=== PATIENT | female | born 1990 | race Caucasian/White ===

== ENCOUNTER 2017-07-08 07:53 | Emergency (ER) | payer BC, OTHER ==
[2017-07-08] MEDS ORDERED: Ketorolac Tromethamine 30 MG/ML VIAL ONE (08:54)
== END 2017-07-08 09:46 | disposition home or self-care (01) ==
LOC: ERS 07:53
DX: B34.9 Viral infection, unspecified (principal); E28.2 Polycystic ovarian syndrome; F41.9 Anxiety disorder, unspecified; F32.9 Major depressive disorder, single episode, unspecified; F43.10 Post-traumatic stress disorder, unspecified
CPT/HCPCS: 87081; 87430; 96372; J1885

== ENCOUNTER 2019-04-28 20:53 | Inpatient (IN) | payer BC ==
[2019-04-28] MEDS ORDERED: Morphine 4 MG/ML VIAL ONE (21:59)
[2019-04-28 22:12] LABS: #Basophils 0.1 thou/uL (0.0-0.2); #Eosinphils 0.1 thou/uL (0.0-0.7); #Lymphocytes 2.3 thou/uL (1.20-3.40); #Monocytes 0.8 thou/uL (0.11-0.59); #Neutrophils 9.3 thou/uL (1.40-6.50); %Basophils 0.4 % (0.0-1.0); %Eosinophils 0.7 % (0.0-10.0); %Lymphocytes 18.5 % (21.0-51.0); %Monocytes 6.4 % (0.0-10.0); Hemoglobin 13.8 g/dL (12.0-16.0); Mean Corpuscular HGB CONC 34.5 g/dL (32.0-36.0); Mean Corpuscular Hemoglobin 30.2 pg (27.0-31.0); Mean Corpuscular Volume 87.6 fL (78.0-98.0); Mean Platelet Volume 6.2 fL (7.4-10.4); Platelet Count 301 thou/uL (130-400); Red Blood Cell (RBC) Count 4.58 mill/uL (4.20-5.40); White Blood Cell (WBC) Count 12.6 thou/uL (4.8-10.8)
--- NOTE | 2019-04-28 22:12 | RAD ---
Radiograph left leg tibia-fibula 2 views: DATE: 04/28/2019 Time: 9:10 PM. HISTORY: 29-year-old female status post acute traumatic injury, fall from horse. FINDINGS: Oblique fracture of distal fibular diaphysis with mild lateral and mild anterior angulation of fractu re apex, approximately quarter to half bone width lateral displacement of main distal fragment, plus posterior butterfly fracture fragment. Transversely oriented fracture at upper portion of medial malleolus, with significant medial displace ment of distal fragment, which adheres to the medial surface of the talus. The talus is severely subluxed or dislocated laterally relative to the tibial plafond and. Posterior malleolus is intact. M id and proximal tibia and fibula are intact. IMPRESSION: 1. Fracture-dislocation/subluxation at the ankle . 2. Displaced, mildly comminuted fracture of distal fibular shaft.
[2019-04-28] MEDS ORDERED: Lidocaine 1% (PF) 30 ML VIAL ONE (22:15)
--- NOTE | 2019-04-28 22:18 | RAD ---
Radiograph left ankle 3 views: DATE: 04/28/2019 Time: 9:17 PM HISTORY: 29-year-old female status post acute ankle trauma due to fall from horse FINDINGS: Oblique fracture of distal fibular diaphysis with mild lateral and mild anterior angulation of fractu re apex, approximately quarter to half bone width lateral displacement of main distal fragment, plus posterior butterfly fracture fragment. Transversely oriented fracture at upper portion of medial malleolus, with significant medial displace ment of distal fragment, which adheres to the medial surface of the talus. The talus is severely subluxed laterally relative to the tibial plafond, and there is widening of the anterior and medial a spects of the ankle mortise. Posterior malleolus is intact. IMPRESSION: 1. Traumatic subluxation-dislocation of tibiotalar joint associated with significant displaced fractu re of the medial malleolus. 2. Displaced, mildly comminuted fracture of distal fibular shaft.
[2019-04-28] MEDS ORDERED: Ketorolac Tromethamine 30 MG/ML VIAL ONE (22:31)
[2019-04-28] MEDS ORDERED: Fentanyl 100 MCG/2 ML VIAL ONE (22:31)
[2019-04-28 22:43] LABS: ALT (SGPT) 23 U/L (8-55); AST (SGOT) 15 U/L (5-34); Albumin 4.2 g/dL (3.5-5.0); Alkaline Phosphatase 95 U/L (40-110); Anion Gap 11 mmol/L (10-20); BUN (Urea Nitrogen) 23 mg/dL (7.0-18.7); Bilirubin, Total 0.5 mg/dL (0.2-1.2); Calc. Creatinine Clearance 0 mL/min (70-130); Calcium 9.4 mg/dL (7.8-10.44); Carbon Dioxide 27 mmol/L (22-29); Chloride 105 mmol/L (98-107); Estimated GFR-MDRD 75; Globulin 3.2 g/dL (2.4-3.5); Glucose 111 mg/dL (70-105); Potassium 3.7 mmol/L (3.5-5.1); Protein, Total 7.4 g/dL (6.0-8.3); Sodium 139 mmol/L (136-145)
--- NOTE | 2019-04-28 23:31 | RAD ---
RADIOGRAPH CHEST 1 VIEW: DATE: 04/28/2019 HISTORY: 29-year-old female for preoperative clearance FINDINGS: There are no airspace densities, pulmonary edema, pneumothorax, or cardiomegaly. The lateral costophr enic angles are sharp. IMPRESSION: No acute cardiopulmonary findings.
--- NOTE | 2019-04-28 23:33 | HP ---
REQUESTING PHYSICIAN: Dr. Estrada. ATTENDING SURGEON: Dr. Kaye. CONSULTATIONS: Orthopedics, Dr. Espinoza. HISTORY OF PRESENT ILLNESS: The patient is a 29-year-old woman, who was riding a horse when she was thrown from the horse, landing on her left ankle. She denies hitting her head or any other injuries. She was brought to the emergency department by ground EMS with a complaint of left ankle pain and swelling and deformity. Upon evaluation in the emergency department, it was noted that she has left ankle fracture dislocation and we were asked to evaluate the patient for admission and obtain Orthopedic consultation. The ER physician had discussed case with Dr. Espinoza, who recommend closed reduction and admission for likely ORIF tomorrow. ALLERGIES: CLINDAMYCIN. CURRENT MEDICATIONS: None. PAST MEDICAL HISTORY: Polycystic ovary syndrome, anxiety, depression, PTSD. PAST SURGICAL HISTORY: Bilateral carpal tunnel release. SOCIAL HISTORY: The patient drinks occasionally. She uses marijuana. Denies tobacco use. She lives independently at home with family. REVIEW OF SYSTEMS: 10-point review of systems is negative except as otherwise stated. PHYSICAL EXAMINATION: VITAL SIGNS: Blood pressure 135/86, heart rate 110, respirations 18, oxygen saturation is 100% on room air, temperature is 98.8. GENERAL: The patient is resting comfortably in bed. She is awake, alert, and oriented x3. Enders Coma Scale is 15. The patient does state her pain is starting to increase as the medicine which was given previously is wearing off, but otherwise she is doing well. HEENT. Head is normocephalic and atraumatic. Eyes; extraocular motion intact. PERRLA bilaterally. Ears are atraumatic without discharge. Nose is atraumatic without discharge. Oropharynx is clear. NECK: Nontender. Trachea is midline. No JVD. CHEST: Clear to auscultation with good inspiratory and expiratory effort. HEART: Regular rate and rhythm. ABDOMEN: Soft, flat, nontender with active bowel sounds. PELVIS: Stable. EXTREMITIES: Neurovascularly intact x4. Left lower extremity has a short pre-hospital splint in place. All extremities are neurovascularly intact. The patient's left lower extremity has 2+ dorsalis pedis pulse and capillary refill is less than 3 seconds. Back is atraumatic. LABORATORY FINDINGS: White blood cell count 12.6, hemoglobin 13.8, hematocrit 40.2, platelets 301. Sodium 139, potassium 3.7, chloride 105 CO2 of 27, BUN 23, creatinine 0.88, glucose 111. LFTs are unremarkable. RADIOGRAPHIC FINDINGS: Views of the left tibia and fibula show a fracture dislocation/subluxation of the ankle, a displaced, mildly comminuted fracture of the distal fibular shaft. Views of the left ankle again show a traumatic subluxation/ dislocation of the tibiotalar joint associated with significantly displaced fracture fragment of the medial malleolus. There was also noted to be a displaced mildly comminuted fracture of the distal fibular shaft. ASSESSMENT: 1. Status post thrown from horse. 2. Left ankle fracture dislocation, awaiting closed reduction in the ER. 3. Acute pain secondary to above. 4. History of anxiety, depression, posttraumatic stress disorder, polycystic ovary disease. PLAN: Plan will be to admit the patient to the surgical floor. She will be made n.p.o. after midnight. She will have pain control, pulmonary toilet, gastritis and mechanical VTE prophylaxis. The evaluation, examination, laboratory, and radiographic findings were discussed with Dr. Kaye prior to this dictation. Job ID: [id number]
[2019-04-29] MEDS ORDERED: Promethazine HCl 25 MG/ML VIAL IM PRN ×2 (01:33)
[2019-04-29] MEDS ORDERED: Ondansetron ODT 4 MG TAB PO PRN (01:33)
[2019-04-29] MEDS ORDERED: Dextrose 50% Abboject 50 ML SYRINGE SLOW IVP PRN (01:33)
[2019-04-29] MEDS ORDERED: hydrALAZINE 20 MG/ML VIAL SLOW IVP PRN (01:33)
[2019-04-29] MEDS ORDERED: Ondansetron PF 4 MG/2 ML Vial IVP PRN (01:33)
[2019-04-29] MEDS ORDERED: Dextrose 5% in Water 1,000 ML IV PRN (01:33)
[2019-04-29 01:42] VITALS: BMI 48.6
[2019-04-29] MEDS: Sodium Chloride 0.9% 1,000 ML IV SCH ×3 (02:02→16:05)
[2019-04-29] MEDS: Ketorolac Tromethamine 30 MG/ML VIAL IVP SCH ×4 (02:02→20:21)
[2019-04-29] MEDS: Acetaminophen 1,000 MG in Premix Bag 1 BAG IVPB SCH ×2 (02:03→08:03)
[2019-04-29] MEDS ORDERED: CEFAZOLIN 2 GM in Premix Bag 1 BAG IVPB SCH (07:30)
--- NOTE | 2019-04-29 07:42 | CON ---
DATE OF CONSULTATION: 04/29/2019 REQUESTING PHYSICIAN: Melecio Kaye MD BRIEF HISTORY OF PRESENT ILLNESS: The patient is a 29-year-old lady, who on the evening of April 28, 2019, was thrown from her horse, landing awkwardly on the left ankle. She reports immediate left ankle pain and inability to ambulate. There was no loss of consciousness. Upon arrival at [facility], x-rays of the left tib-fib and left ankle were obtained and these are remarkable for a fracture dislocation of the left ankle with a distal medial malleolar fracture. A Pascal C distal fibula fracture and disruption of the syndesmosis and lateral dislocation of the talus from underneath the mortise. A closed reduction was performed in the emergency room with worship of the talus under the plafond and she was splinted and Orthopedic consultation requested. PAST MEDICAL HISTORY: Remarkable for PTSD as well as history of polycystic ovary. PAST SURGICAL HISTORY: Bilateral carpal tunnel release without complications. MEDICATIONS: None. ALLERGIES: TO CLINDAMYCIN THAT CAUSES RASH. SOCIAL HISTORY: The patient consumes alcohol on a social basis. She does use edible marijuana products. She denies tobacco consumption. REVIEW OF SYSTEMS: Denies recent fevers, chills, or sweats. Denies chest pain or shortness of breath. Denies numbness or tingling in this left lower extremity. PHYSICAL EXAMINATION: GENERAL: Today, the patient is examined in her hospital bed. She is awake, alert, and oriented. VITAL SIGNS: She is found to have a temperature of 97.9, heart rate of 73, respiratory rate of 18, and blood pressure of 112/80. HEENT: Atraumatic and normocephalic. HEART: Shows a regular rate and rhythm without murmur. LUNGS: Clear to auscultation bilaterally with good breath sounds. Chest wall is nontender. ABDOMEN: Round with normal bowel sounds. PELVIS: Stable to compression and nonpainful. EXTREMITIES: Remarkable for bilateral upper extremities. They are atraumatic at the shoulder, elbow, wrist, and hand. She denies numbness or tingling in the hands. The right lower extremity is also atraumatic with no pain. She is wiggling her toes normally and has normal subjective sensation. The left lower extremity is remarkable for a short-leg splint that is in place. She is able to wiggle her toes and does not have a significant increase in pain with passive stretch of the toes. She does have intact sensation over the dorsal and plantar surfaces of the toes with excellent capillary refill. The knee and hip appear atraumatic. LABORATORY DATA: She has a white count of 12.6, a hematocrit of 40.2, and platelets 301,000. X-RAYS: Two-view tib-fib and three-view ankle remarkable for a medial malleolus fracture with a fracture occurring towards the tip of the malleolus. A distal fibula fracture that is above the level of the ankle mortise and a lateral displacement of the talus that has been partially corrected with closed reduction and splinting. ASSESSMENT: A 29-year-old female status post thrown from horse, sustaining left ankle fracture dislocation. PLAN: At this time, I have discussed with the patient and given the displacement and instability of the ankle, I would recommend proceeding with open reduction and internal fixation as well as stabilization of the mortise with a syndesmotic screw. Today, we discussed risks and benefits. Risks include, but are not limited to, bleeding, infection, nerve injury, DVT, PE, malunion, nonunion, ankle stiffness, residual ankle pain, loss of limb or life. The patient appears to understand and does wish to proceed. Consent will be obtained prior to surgery. Job ID: [id number]
--- NOTE | 2019-04-29 07:57 | RAD ---
LEFT TIBIA FIBULA: Total of 4 views. AP and lateral projections. COMPARISON: Comparison is made with film taken earlier on 04/28/2019. FINDINGS/IMPRESSION: Cast material is noted in place. The obliquely oriented fracture of the distal diaphysis of the fibu la is again noted. There continues to be mild displacement of at least shaft width. POS: [facility]
[2019-04-29] MEDS: Famotidine/PF 20 mg/2ml Vial SLOW IVP SCH ×2 (08:03→20:28)
[2019-04-29] MEDS ORDERED: FLU VACC QS2019-20(6MOS UP)/PF 60 MCG/0.5 ML SYRINGE IM ONE (09:00)
[2019-04-29] MEDS ORDERED: Lidocaine 1% PF 5 ML VIAL ONE (09:55)
[2019-04-29] MEDS ORDERED: Succinylcholine Chloride 20 MG/ML 10 ml SYRINGE FS ONE (09:55)
[2019-04-29] MEDS ORDERED: Rocuronium Bromide 10 MG/ML (10ML VIAL) ONE (09:55)
[2019-04-29] MEDS ORDERED: Ketorolac Tromethamine 30 MG/ML VIAL ONE (09:55)
[2019-04-29] MEDS ORDERED: PROPOFOL 200 MG/20 ML VIAL ONE (09:55)
--- NOTE | 2019-04-29 10:10 | RAD ---
EXAM: 3 views of the left shoulder HISTORY: Shoulder pain after falling from a horse COMPARISON: None FINDINGS: There is no evidence of acute fracture or dislocation. No degenerative changes are present. No soft tissue swelling is seen. The visualized thorax is unremarkable. IMPRESSION: No evidence of acute osseous abnormality.
[2019-04-29] MEDS: Morphine 2 MG/ML SYRINGE SLOW IVP PRN ×2 (11:48→16:10)
--- NOTE | 2019-04-29 12:55 | PRG ---
DATE OF SERVICE: 04/29/2019 SUBJECTIVE: The patient is currently on the surgical floor. She had x-rays performed that showed a fracture dislocation of the left ankle with a distal medial malleolar fracture, a Pascal C distal fibula fracture and disruption of the syndesmosis and lateral dislocation of the talus from underneath the mortise. A closed reduction was performed in the ED with spiritism of the talus under the plafond, and she was splinted. Today around 2:00 p.m., she will undergo open reduction and internal fixation as well as stabilization of the mortise with a syndesmotic screw with Ortho. She is currently n.p.o. She says her pain is well controlled with her current pain regimen. She says she slept well overnight. OBJECTIVE: VITAL SIGNS: She was hypertensive once overnight, but her vital signs have since been stable. GENERAL: The patient is resting comfortably in bed, in no acute distress. HEENT: Atraumatic, normocephalic. RESPIRATORY: The patient is breathing unlabored and she has equal chest rise and fall. EXTREMITIES: Neurovascularly intact x4 with clean, dry, and intact dressing of her left ankle. ASSESSMENT: 1. Status post thrown from a horse. 2. Left ankle fracture dislocation with closed reduction in the ED. 3. Acute pain, improved. 4. History of anxiety, depression, and post traumatic stress disorder as well as polycystic ovary syndrome. The patient does not take any prescribed medications for this. PLAN: To continue supportive care. Await surgery this afternoon at 2:00 p.m. We will restart diet after that. She will work with PT this morning on using her crutches and if everything goes well with surgery today, likely be discharged tomorrow. This patient was discussed with Dr. Dominguez. Job ID: [id number] [email or web address]
[2019-04-29] MEDS ORDERED: Bupivacaine PF 0.5% 30 ML VIAL ONE (13:15)
[2019-04-29] MEDS ORDERED: Ibuprofen 600 MG TAB PO PRN (13:28)
[2019-04-29] MEDS ORDERED: traMADol HCl 50 MG TAB PO PRN (13:28)
[2019-04-29] MEDS ORDERED: Fentanyl 100 MCG/2 ML VIAL ONE ×3 (13:34→15:20)
[2019-04-29] MEDS: Acetaminophen 500 MG TAB PO SCH ×2 (14:01→20:20)
--- NOTE | 2019-04-29 15:55 | RAD ---
LEFT ANKLE THREE VIEW: 04/29/19 INDICATION: ORIF left ankle. FINDINGS: There is fracture fixation of the distal fibula with plate and screw fixation as well as two metallic screws of the medial malleolus. There is overlying soft tissue lucency and prominence of the left an kle. IMPRESSION: Intraoperative views for fracture fixation of the distal left leg. POS: [facility]
[2019-04-29] MEDS: traMADol HCl 50 MG TAB PO PRN (18:33)
[2019-04-29] MEDS: Senokot S 8.6-50 MG TAB PO SCH (20:27)
[2019-04-29] MEDS: Gabapentin 300 MG CAP PO PRN (20:27)
[2019-04-29] MEDS: CEFAZOLIN 2 GM in Premix Bag 1 BAG IVPB SCH (21:11)
[2019-04-29] MEDS: Cyclobenzaprine 10 MG TAB PO PRN (22:06)
--- NOTE | 2019-04-29 22:57 | PRG ---
DATE OF SERVICE: 04/29/2019 SUBJECTIVE: The patient is hospital day 2, postop day 0 from being thrown from a horse and sustaining left ankle fracture dislocation. She underwent closed reduction in the emergency department last night and today underwent open reduction and internal fixation of her fracture dislocation. She tolerated this well. She has begun working with Physical Therapy as she is nonweightbearing for the next several weeks. The patient reports that her pain is controlled and she is tolerating a diet. PHYSICAL EXAMINATION: VITAL SIGNS: Stable. The patient is afebrile. GENERAL: The patient is resting comfortably in bed. She is awake, alert, and oriented x3. Gaytari Coma Scale is 15. She appears in no distress. EXTREMITIES: Her extremities are neurovascularly intact. Her postop dressing is clean, dry, and intact. ASSESSMENT: 1. Status post fall from horse. 2. Status post open reduction and internal fixation of left ankle fracture dislocation. PLAN: Plan will be to continue supportive care. Encourage physical and occupational therapy, and the patient will likely be able to be discharged home within the next 24 to 48 hours. The patient is eager to be discharged home and return to work on Friday. Job ID: [id number]
[2019-04-30] MEDS: traMADol HCl 50 MG TAB PO PRN ×3 (00:37→13:39)
[2019-04-30] MEDS: Acetaminophen 500 MG TAB PO SCH ×3 (02:39→13:39)
[2019-04-30] MEDS: CEFAZOLIN 2 GM in Premix Bag 1 BAG IVPB SCH (05:03)
--- NOTE | 2019-04-30 07:37 | HP ---
ADDENDUM: This is an addendum for H and P dictated by Guero Chester PA-C For full details, please see history and physical report details of which I have confirmed with him. HISTORY OF PRESENT ILLNESS: The patient was seen this morning on trauma rounds. In short, she is a 29-year-old fell off her horse, landing on her left ankle. She wrenched her left shoulder a little bit as well as she was holding onto the reins. No loss of consciousness or other injury. She was noted to have a fracture dislocation in the left ankle and planned to undergo surgery for this today. Since being splinted in the emergency room better, she does not have pain anywhere else except for her left shoulder is sore. ALLERGIES: REPORTS AN ALLERGY TO CLINDAMYCIN. MEDICATIONS: Does not take any medications. PAST MEDICAL HISTORY: Polycystic ovary disease, PTSD, and depression, but no problems. PAST SURGICAL HISTORY: She has undergone carpal tunnel release surgery. SOCIAL HISTORY: She does not smoke. She occasionally has alcohol, but not to excess. REVIEW OF SYSTEMS: Ten-point review of systems completed and negative except as mentioned above. PHYSICAL EXAMINATION: VITAL SIGNS: The patient has been afebrile since admission. Heart rate 81, respirations 14, 98% saturated on room air, blood pressure 123/77. GENERAL: Reveals an obese young woman she is not flushed or toxic. HEENT: Nontraumatic. NECK: Supple and nontender. HEART: Regular in its rate and rhythm without murmurs, rubs, or gallops. LUNGS: Clear to auscultation bilaterally. ABDOMEN: Soft, nontender, nondistended. PELVIS: Stable. EXTREMITIES: Warm and well perfused. She does have a left splint in place, but has normal sensation and movement of her toes and normal capillary refill. Her right foot has normal pulses and sensation. No other deformities or areas of tenderness are noted. NEUROLOGIC: Intact. She is able to move her shoulder with full active range of motion, but with pain. LABORATORY DATA: Lab work on admission was . Left tibia-fibula and ankle x-ray show a fracture dislocation/subluxation of the left ankle with a mildly comminuted fracture of the distal fibular shaft. Shoulder x-rays were ordered on rounds this morning on left shoulder radiographically. ASSESSMENT: Fracture dislocation of the left ankle, going to the operating room today for open reduction and internal fixation. We will get her up postoperatively with physical therapy. If her pain is managed and she is able to mobilize with crutches, she will likely discharge her home either later today or tomorrow. Job ID: [id number]
[2019-04-30] MEDS: Senokot S 8.6-50 MG TAB PO SCH (08:46)
[2019-04-30] MEDS ORDERED: Polyethylene Glycol 3350 17 GM Packet PO SCH (09:00)
[2019-04-30] MEDS ORDERED: Famotidine 20 MG TAB PO SCH (09:00)
[2019-04-30] MEDS: Gabapentin 300 MG CAP PO PRN (10:23)
[2019-04-30] MEDS: Cyclobenzaprine 10 MG TAB PO PRN (10:23)
[2019-04-30 11:14] VITALS: BP 146/88; TEMP 98.5
--- NOTE | 2019-04-30 12:25 | OP ---
DATE OF PROCEDURE: 04/29/2019 PREOPERATIVE DIAGNOSIS: Left ankle fracture dislocation with bimalleolar ankle fracture and syndesmotic disruption. POSTOPERATIVE DIAGNOSIS: Left ankle fracture dislocation with bimalleolar ankle fracture and syndesmotic disruption. SURGICAL PROCEDURE: Open reduction and internal fixation of left bimalleolar ankle fracture with syndesmotic screw placement. ANESTHESIA: General. CONTRACT PROGRAMMER: Senthil. TOURNIQUET TIME: 49 minutes at 300 mmHg. IMPLANTS: Synthes system was used with an 8 hole 1/3 tubular plate and 3.5 mm cortical screws with the addition of a 4-mm cortical syndesmotic screw and two 4.0 mm partially-threaded cancellous screws for the medial malleolus. COMPLICATIONS: None. DRAINS: None. SPECIMEN: None. OUTCOME: Near-anatomic alignment. INDICATIONS FOR PROCEDURE: The patient is a 29-year-old lady status post fall from horse, sustaining a fracture dislocation of the left ankle. After discussion with the patient including risks and benefits, we decided to proceed with open reduction and internal fixation to restore more normal anatomy to the ankle to facilitate healing and return of function. Informed consent has been obtained, risks and benefits have been discussed. Risks include, but are not limited to bleeding, infection, nerve injury, ankle stiffness, hardware failure, malunion, nonunion, DVT, PE, loss of limb or life. The patient appears to understand and does wish to proceed. DESCRIPTION OF PROCEDURE: The patient was brought to the operating room and a time-out performed followed by induction of general anesthesia. Next, the patient was positioned supine on the OR table and a sterile prep and drape was performed in the left lower extremity. The limb was then exsanguinated with Esmarch bandage, tourniquet inflated to 300 mmHg. A lateral skin incision was made, centered over the distal fibular shaft fracture. After the skin was sharply incised, dissection was carried down bluntly to the fracture. The periosteum was freed off the ends of the bones and the bones were reduced and held in place with a bone tenaculum. Next, an [id number] interfragmentary lag screw was applied in standard fashion securing the fracture fragment. Next, an 8-hole neutralization plate was applied to the lateral cortex of the distal fibula. This was held in place with 3 cortical screws proximal and 3 cortical screws distal to the main fracture line. Next, attention was placed to the medial side of the ankle. A curvilinear incision was made, centered over the tip of the medial malleolus. After skin was sharply incised, dissection was carried down bluntly taking care to protect the saphenous vein. The fracture was identified, freed of its hematoma and then the fracture was reduced and held in place with a bone tenaculum, while two 40 mm long 4.0 partially-threaded cancellous screws were passed from the tip of the medial malleolus obliquely across the fracture into the distal tibial metaphysis. AP and lateral C-arm images were then obtained that showed anatomic alignment of the ankle, but still with a loose mortise. As such, a 4.0 mm fully-threaded cortical screw was passed through the distal hole of the plate across both cortices of the fibula and both cortices of the distal tibia securing and stabilizing the ankle mortise. At the completion of this, final AP, lateral and mortise images were obtained and saved. The wounds were then irrigated with bulb syringe and closed in layers with 0 Vicryl deep followed by 2-0 Vicryl and then nylon for the skin. Xeroform gauze, Webril, and fiberglass splint was applied to the ankle. Tourniquet was let down and the patient was transferred to recovery room in stable condition. There were no complications. She tolerated the procedure well. Job ID: [id number]
--- NOTE | 2019-05-01 12:11 | EKG ---
Test Reason : Blood Pressure : / mmHG Vent. Rate : 105 BPM Atrial Rate : 105 BPM P-R Int : 140 ms QRS Dur : 072 ms QT Int : 324 ms P-R-T Axes : 064 061 026 degrees QTc Int : 428 ms Sinus tachycardia Possible Left atrial enlargement Borderline ECG Confirmed by BRYAN LEAHY ([id number]), film and video editor NORMA PHAM ([id number]) on 05/01/2019 12:10:43 PM Referred By: Confirmed By:BRYAN LEAHY
--- NOTE | 2019-05-03 12:38 | DIS ---
DATE OF ADMISSION: 04/28/2019 DATE OF DISCHARGE: 04/30/2019 ADMISSION DIAGNOSES: 1. Status post fall from a horse. 2. Left ankle fracture dislocation. 3. History of anxiety, depression, post-traumatic stress disorder. DISCHARGE DIAGNOSES: 1. Status post fall from a horse. 2. Left ankle fracture, status post open reduction and internal fixation of left ankle fracture, postop day 1. 3. History of anxiety, depression, post-traumatic stress disorder, stable. CONSULTING PHYSICIAN: Dr. Enrique Espinoza, orthopedic. PROCEDURE: Open reduction and internal fixation of left ankle fracture. HOSPITAL COURSE: Ms. Zapata is a 29-year-old female, coming to the ER after a fall from a horse, sustained left ankle fracture dislocation. She was reduced in ED. Dr. Espinoza decided to take her to go to the OR for ORIF of left ankle fracture dislocation. Postop, the patient reports doing good. Pain is well controlled. The patient has been able to work with PT/OT. She is tolerating a regular diet. Her vital signs have been stable. She will be discharged home with home pain medications p.o. PHYSICAL EXAMINATION: GENERAL: The patient is lying down in bed, with no acute respiratory distress. VITAL SIGNS: Temperature 98.5, heart rate is 88, O2 saturation is 95% on room air, respiratory rate is 16, and blood pressure is 146/88. LUNGS: Clear bilaterally. HEART: Regular rate and rhythm. ABDOMEN: Soft and nondistended. EXTREMITIES: Neurovascularly intact x4. Left lower extremity splint in place, clean, dry, and intact. intact. NEUROLOGY: No focal neurology deficits. DISCHARGE DISPOSITION: Home. DISCHARGE CONDITION: Good. DISCHARGE INSTRUCTIONS: The patient is to take medication as directed. The patient is to see Dr. Espinoza in 10 to 14 days. The patient can go back to work light duty in 3 days. DISCHARGE MEDICATION: 1. Flexeril. 2. Gabapentin. 3. Tramadol. 4. Tylenol. 5. Ibuprofen. Job ID: [id number]
== END 2019-04-30 14:30 | disposition home or self-care (01) | DRG 493 ==
LOC: ERS 20:53 → SURG A 22:05
PROVIDERS: ADMIT Specialist; ATTEND Specialist
PROC: 0QSK04Z Reposition Left Fibula with Internal Fixation Device, Open Approach (ICD-10-PCS; principal; 2019-04-30)
DX: S82.842A Displaced bimalleolar fracture of left lower leg, initial encounter for closed fracture (principal); Z68.42 Body mass index [BMI] 45.0-49.9, adult; F41.9 Anxiety disorder, unspecified; F32.9 Major depressive disorder, single episode, unspecified; E66.9 Obesity, unspecified; F43.10 Post-traumatic stress disorder, unspecified; Z98.890 Other specified postprocedural states; V80.010A Animal-rider injured by fall from or being thrown from horse in noncollision accident, initial encounter
CPT/HCPCS: 36415; 71045; 76000; 80053; 85025; 90471; 90686; 93005; C1713; G0008; G0390; J0131; J0690; J1885; J2001; J2270; J3010; Q0162; S0020; S0028

== ENCOUNTER 2019-09-07 10:22 | Day surgery (SDC) | payer BC ==
[2019-09-06 14:15] VITALS: BMI 49.9
[2019-09-07] MEDS ORDERED: Lidocaine 1% (PF) 30 ML VIAL ONE (11:50)
[2019-09-07] MEDS ORDERED: Scopolamine 1.5 mg/72 hour Patch ONE (11:52)
[2019-09-07] MEDS ORDERED: Ketorolac Tromethamine 30 MG/ML VIAL ONE (13:02)
[2019-09-07] MEDS ORDERED: Ondansetron PF 4 MG/2 ML Vial ONE (13:02)
[2019-09-07] MEDS ORDERED: PROPOFOL 200 MG/20 ML VIAL ONE (13:02)
[2019-09-07] MEDS ORDERED: Dexamethasone 20 MG/5 ML VIAL ONE (13:02)
[2019-09-07] MEDS ORDERED: Lidocaine 1% PF 5 ML VIAL ONE (13:02)
[2019-09-07] MEDS ORDERED: Fentanyl 100 MCG/2 ML VIAL ONE (13:25)
--- NOTE | 2019-09-07 15:23 | RAD ---
XR Ankle Lt 2 View HISTORY: Hardware removal left ankle FINDINGS: Plate and screws in the distal fibula and 2 screws in the medial malleolus are again seen as on exam of 04/29/2019.
--- NOTE | 2019-09-07 23:12 | OP ---
DATE OF PROCEDURE: 09/07/2019 PREOPERATIVE DIAGNOSIS: Symptomatic retained hardware, left ankle. POSTOPERATIVE DIAGNOSIS: Symptomatic retained hardware, left ankle. PROCEDURE: Removal of syndesmotic screw, left ankle. ANESTHESIA: General. TOURNIQUET TIME: Zero. ESTIMATED BLOOD LOSS: 5 mL. COMPLICATIONS: None. DRAINS: None. SPECIMEN: Explanted 4.0 mm rescue screw. OUTCOME: Satisfactory. INDICATIONS FOR PROCEDURE: The patient is a pleasant 29-year-old lady status post fall from horse sustaining a significant fracture of her left ankle. The patient has gone on to heal this fracture but does have retained syndesmotic screw, which is interfering with yazidi of normal ankle range of motion. After discussion with the patient including risks and benefits, it was decided to proceed with hardware removal of this syndesmotic screw. Informed consent has been obtained. I believe all questions have been answered. DESCRIPTION OF PROCEDURE: The patient was brought to the operating room and a time-out performed followed by induction of general anesthesia. Next, the patient was positioned supine on the OR table and then a sterile prep and drape was performed of the left lower extremity. Next, under C-arm localization, a small incision was made following the vertical scar laterally from her ankle open reduction and internal fixation surgery. Once localized, a small 1 cm incision was made and then blunt dissection carried down such that the head of the screw could be felt with the screwdriver. The screw was then removed without difficulty and a single AP projection of the ankle was obtained and saved for her medical record. The wound was then irrigated with bulb syringe, then closed with 3-0 nylon horizontal mattress fashion. Xeroform gauze and Sanchez wrap dressing were then applied to the ankle and then she was transferred to recovery room in stable condition. There were no complications. The patient tolerated the procedure well. Job ID: [id number]
== END 2019-09-07 15:09 | disposition home or self-care (01) ==
LOC: SDC 10:22
PROVIDERS: ATTEND Orthopaedic Surgery
PROC: 0SPG05Z Removal of External Fixation Device from Left Ankle Joint, Open Approach (ICD-10-PCS; principal; 2019-09-07)
DX: T84.84XA Pain due to internal orthopedic prosthetic devices, implants and grafts, initial encounter (principal); F41.9 Anxiety disorder, unspecified; F32.9 Major depressive disorder, single episode, unspecified; Z88.1 Allergy status to other antibiotic agents
CPT/HCPCS: 76000; J0690; J1100; J1885; J2001; J2405; J2704; J3010